=== PATIENT | female | born 1950 | race Caucasian/White ===

== ENCOUNTER 2018-07-17 18:16 | Emergency (ER) | payer BC, OTHER ==
[2018-07-17 18:41] VITALS: BP 150/80; PULSE 80; TEMP 98.1; BMI 35.2
--- NOTE | 2018-07-17 19:17 | PDOC ---
History of Present Illness - History of Present Illness Initial Comments: This is a 67 year old female, with no significant past medical history, who presents to the emergency department today complaining of palpitations since earlier today. Patient notes she began feeling palpitations a few hours ago while grocery shopping, which she notes lasted an hour. 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 She also reports having intermittent L shoulder pain for 2 weeks, which is exacerbated while lying on her left side. She notes that the shoulder pain is unaffected by palpitations, but the onset of her palpitations combined with her shoulder pain is what prompted her visit to the ED. The patient denies shortness of breath, headache and dizziness. Denies fever, chills, nausea, vomit, diarrhea and constipation. Denies dysuria, frequency, urgency and hematuria. PAST MEDICAL HISTORY: no significant history PAST SURGICAL HISTORY: no significant history FAMILY HISTORY: no pertinent history SOCIAL HISTORY: Pt lives with family and is employed. MEDICATIONS: reviewed ALLERGIES: As per nursing notes ROS General: No fevers or chills, no weakness, no weight loss HEENT: No change in vision. No sore throat. No ear pain CardioVascular: +Palpitations. No chest pain or shortness of breath Respiratory: No cough, or wheezing. Gastrointestinal: no nausea, vomiting, diarrhea or constipation, No rectal bleeding Genitourinary: No dysuria, hematuria, or frequency Musculoskeletal: +Intermittent left shoulder pain. No joint or muscle swelling. Neurologic: No headache, vertigo, dizziness or loss of consciousness Psychiatric: nor depression Skin: No rashes or easy bruising Endocrine: no increased thirst or abnormal weight change Allergic: no skin or latex allergy All other systems reviewed and normal Exam: General: Well-nourished well-developed individual, no acute distress HEENT: Throat: Normal, tonsils normal, no erythema or exudate Neck: Supple, no meningeal signs, no lymphadenopathy Eyes::Pupils equal reactive and round, extraocular motion intact Chest: Nontender to palpation Cardiac: S1-S2 normal, regular rate and rhythm, no murmurs rubs or gallops Respiratory: Lungs clear to auscultation bilateral Abdomen: Soft, nondistended, normal bowel sounds, nontender to palpation diffusely Extremities: Warm, dry, no cyanosis, clubbing, or edema Skin: No rashes Neuro: Alert and oriented x3, nonfocal exam, grossly intact, normal gait Psych: Normal mood and affect. <Roselyn Beltran - Last Filed: 07/17/18 20:04> - General History Source: Patient Exam Limitations: No Limitations - History of Present Illness Initial Comments: 07/17/18 20:09 A portion of this note was documented by scribe services under my direction. I have reviewed the details of the note, within reason, and agree with the documentation with the following case summary and management plan written by me. Patient treated in the ED. Nursing notes are reviewed and incorporated into the medical decision-making. Vital signs reviewed. Assessment plan: This is 67-year-old female with no significant past medical history and no significant risk factors for coronary artery disease. Patient came in complaining of some palpitations and had some intermittent left shoulder pain that was worse with movement. An EKG was done that showed normal sinus rhythm some nonspecific T-wave abnormalities, otherwise normal Cardiac enzymes were sent However patient did not want to wait for the results of her cardiac enzymes so she was discharged and I will call her with the results of her cardiac enzymes patient understands that if they are normal she will have to come back in 07/17/18 20:09 <Chase Bautista I - Last Filed: 07/17/18 20:10> - General Chief Complaint: Psychiatric Stated Complaint: ANXIETY Time Seen by Provider: 07/17/18 19:14 Past History <Roselyn Beltran - Last Filed: 07/17/18 20:04> - Past Medical History COPD: No - Surgical History Cholecystectomy: Yes - Suicide/Smoking/Psychosocial Hx Smoking Status: Yes Smoking History: Current some day smoker Have you smoked in the past 12 months: Yes Number of Cigarettes Smoked Daily: 2 Information on smoking cessation initiated: Yes Hx Alcohol Use: No <Chase Bautista I - Last Filed: 07/17/18 20:10> - Past Medical History Allergies/Adverse Reactions: Allergies Allergy/AdvReac Type Severity Reaction Status Date / Time No Known Allergies Allergy Verified 07/17/18 18:25 Home Medications: Ambulatory Orders NK [No Known Home Medication] 07/17/18 *Physical Exam - Vital Signs Last Vital Signs Temp Pulse Resp BP Pulse Ox 98.1 F 80 18 150/80 100 07/17/18 18:16 07/17/18 18:16 07/17/18 18:16 07/17/18 18:16 07/17/18 18:16 <Roselyn Beltran - Last Filed: 07/17/18 20:04> - Vital Signs Last Vital Signs Temp Pulse Resp BP Pulse Ox 98.1 F 80 18 150/80 100 07/17/18 18:16 07/17/18 18:16 07/17/18 18:16 07/17/18 18:16 07/17/18 18:16 <Chase Bautista I - Last Filed: 07/17/18 20:10> Moderate Sedation - Procedure Monitoring Vital Signs: Procedure Monitoring Vital Signs Temperature 98.1 F 07/17/18 18:16 Pulse Rate 80 07/17/18 18:16 Respiratory Rate 18 07/17/18 18:16 Blood Pressure 150/80 07/17/18 18:16 O2 Sat by Pulse Oximetry (%) 100 07/17/18 18:16 <Roselyn Beltran - Last Filed: 07/17/18 20:04> - Procedure Monitoring Vital Signs: Procedure Monitoring Vital Signs Temperature 98.1 F 07/17/18 18:16 Pulse Rate 80 07/17/18 18:16 Respiratory Rate 18 07/17/18 18:16 Blood Pressure 150/80 07/17/18 18:16 O2 Sat by Pulse Oximetry (%) 100 07/17/18 18:16 <Chase Bautista I - Last Filed: 07/17/18 20:10> *DC/Admit/Observation/Transfer - Attestations Scribe Attestion: 07/17/18 20:05 Documentation prepared by STALIN Gabriel, acting as medical records coordinator for Chase Bautista MD <Roselyn Beltran - Last Filed: 07/17/18 20:04> - Discharge Dispostion Decision to Admit order: No <Chase Bautista I - Last Filed: 07/17/18 20:10> Diagnosis at time of Disposition: Heart palpitations - Discharge Dispostion Disposition: HOME Condition at time of disposition: Stable - Patient Instructions Additional Instructions: You're being discharged however your one test that we did was not done at the time your discharge. We will call you if it is abnormal and he will need to come back. Return to the emergency department immediately with ANY new, persistent or worsening symptoms. Continue any medications as previously prescribed by your physician. You should follow up with your primary doctor as soon as possible regarding today's emergency department visit. . Please make sure your doctor reviews the results of your emergency evaluation. Thank you for coming to the Emergency Department today for your care. It was a pleasure to see you today. Please note that your evaluation is INCOMPLETE until you follow-up with your doctor.
--- NOTE | 2018-07-18 13:02 | EKG ---
Test Reason : Blood Pressure : / mmHG Vent. Rate : 088 BPM Atrial Rate : 088 BPM P-R Int : 168 ms QRS Dur : 088 ms QT Int : 378 ms P-R-T Axes : 067 -13 006 degrees QTc Int : 457 ms POOR DATA QUALITY, INTERPRETATION MAY BE ADVERSELY AFFECTED NORMAL SINUS RHYTHM NONSPECIFIC T WAVE ABNORMALITY ABNORMAL ECG WHEN COMPARED WITH ECG OF 16-JUN-2013 13:44, VENT. RATE HAS INCREASED BY 34 BPM Confirmed by Christo Silvestre ([id number]) on 07/18/2018 1:02:45 PM Referred By: OVIDIO Confirmed By:Christo Silvestre
== END 2018-07-17 20:24 | disposition home or self-care (01) ==
LOC: FER 18:16
DX: R00.2 Palpitations (principal); F17.210 Nicotine dependence, cigarettes, uncomplicated
CPT/HCPCS: 36415; 82550; 84484; 93005; 99282-25

== ENCOUNTER 2019-08-04 18:01 | Emergency (ER) | payer BC ==
[2019-08-04] MEDS ORDERED: SODIUM CHLORIDE 0.9% 1000 ML INFUS.BAG IV ONE (18:23)
--- NOTE | 2019-08-04 18:26 | PDOC ---
Documentation entered by Reshma Perry SCRIBE, acting as scribe for Brooke Aiken DO. Brooke Aiken DO: This documentation has been prepared by the sven, Reshma Perry SCRIBE, under my direction and personally reviewed by me in its entirety. I confirm that the documentation accurately reflects all work, treatment, procedures, and medical decision making performed by me. History of Present Illness - General Chief Complaint: Pain Stated Complaint: abdominal painnhematuria Time Seen by Provider: 08/04/19 18:06 - History of Present Illness Initial Comments: 08/04/19 18:36 This is a 68 year old female with no significant past medical history, who presents to the emergency department today complaining of LLQ pain. Patient was referred in by [facility] where they found blood in her urine. Patient states the pain began yesterday night after eating brussel sprouts with maldonado and felt gassy, she also states developing a fever of 101.1 and chills. She states taking motrin with no alleviation of pain. She denies taking any medication for the pain today. She denies recent nausea, vomiting, diarrhea or constipation. She denies recent dysuria, frequency, or urgency She denies recent chest pain or shortness of breath. Past History - Past Medical History Allergies/Adverse Reactions: Allergies Allergy/AdvReac Type Severity Reaction Status Date / Time No Known Allergies Allergy Verified 08/04/19 18:04 Home Medications: Ambulatory Orders NK [No Known Home Medication] 07/17/18 COPD: No - Surgical History Cholecystectomy: Yes - Psycho Social/Smoking Cessation Hx Smoking Status: Yes Smoking History: Current some day smoker Have you smoked in the past 12 months: Yes Number of Cigarettes Smoked Daily: 2 Hx Alcohol Use: No Review of Systems - Review of Systems Able to Perform ROS?: Yes Comments:: 08/04/19 18:36 GENERAL/CONSTITUTIONAL: + fever. +chills. No weakness. HEAD, EYES, EARS, NOSE AND THROAT: No change in vision. No ear pain or discharge. No sore throat. GASTROINTESTINAL: No nausea, vomiting, diarrhea or constipation. GENITOURINARY: No dysuria, frequency, or change in urination. CARDIOVASCULAR: No chest pain or shortness of breath. RESPIRATORY: No cough, wheezing, or hemoptysis. MUSCULOSKELETAL:+LLQ pain. No joint or muscle swelling or pain. No neck or back pain. SKIN: No rash NEUROLOGIC: No headache, vertigo, loss of consciousness, or change in strength/ sensation. ENDOCRINE: No increased thirst. No abnormal weight change. HEMATOLOGIC/LYMPHATIC: No anemia, easy bleeding, or history of blood clots. ALLERGIC/IMMUNOLOGIC: No hives or skin allergy. *Physical Exam - Vital Signs Last Vital Signs Temp Pulse Resp BP Pulse Ox 98.8 F 88 18 147/83 99 08/04/19 18:03 08/04/19 18:03 08/04/19 18:03 08/04/19 18:03 08/04/19 18:03 - Physical Exam General Appearance: Yes: Nourished, Appropriately Dressed. No: Apparent Distress HEENT: positive: EOMI, Normal Voice Neck: positive: Supple Respiratory/Chest: positive: Lungs Clear, Normal Breath Sounds. negative: Respiratory Distress Cardiovascular: positive: Regular Rhythm, Regular Rate, S1, S2. negative: Edema Gastrointestinal/Abdominal: positive: Soft, Tenderness (LLQ/L pelvis). negative : Guarding, Rebound Musculoskeletal: positive: Normal Inspection. negative: CVA Tenderness Extremity: positive: Normal Capillary Refill, Normal Inspection, Normal Range of Motion, Other (ambulatory with a steady gait) Integumentary: positive: Normal Color, Dry, Warm. negative: Rash Neurologic: positive: Fully Oriented, Alert, Normal Mood/Affect ED Treatment Course - LABORATORY CBC & Chemistry Diagram: 08/04/19 18:35 08/04/19 18:35 - RADIOLOGY Radiology Studies Ordered: Category Date Time Status ABDOMEN & PELVIS CT W/O CONTR [CT] Stat CT Scan 08/04/19 18:22 Ordered Medical Decision Making - Medical Decision Making 08/04/19 18:24 a/p: 68 yo female with L flank and LLQ pain since yesterday -chills last night -tmax 100.4 -last motrin was last night -pain after eating brussel sprouts -hematuria on ua dip from urgent care and sent for further eval of L flank pain/ hematuria -no n/v/d -last bm was today -no fevers today -L pelvis ttp, will send labs, ua, ucx -suspect renal colic -hx of requiring lithotrypsy in the past and has followed with Dr. Christiansen -pt declines pain meds at this time and is nontoxic in appearance 08/04/19 18:50 blood in urine, no uti 08/04/19 18:51 pt will be signed out to the [facility] ED doc pending labs and ct imaging pt currently stable Discharge - Discharge Information Problems reviewed: Yes Clinical Impression/Diagnosis: Left flank pain, Hematuria Condition: Stable - Follow up/Referral Referrals: Tawny Seth MD [Primary Care Provider] - Roly Dunaway MD [Staff Physician] - Saulo Dunaway [Non Staff, Medical] - - Patient Discharge Instructions - Post Discharge Activity
[2019-08-04 18:33] VITALS: BP 147/83; PULSE 88; TEMP 98.8; BMI 36.5
[2019-08-04 18:49] LABS: EOS % 0.9 % (0-4.5); HEMATOCRIT 43.1 % (32.4-45.2); HEMOGLOBIN 14.5 GM/dl (10.7-15.3); LYMPH % 36.4 % (8-40); MCH 31.3 pg (25.7-33.7); MCHC 33.7 g/dl (32.0-36.0); MEAN CELL VOLUME 92.8 fl (80-96); MEAN PLT VOLUME 7.6 fl (7.5-11.1); MONO % 4.6 % (3.8-10.2); NEUT % 57.1 % (42.8-82.8); PLATELET COUNT 332 K/MM3 (134-434); RBC 4.65 M/mm3 (3.60-5.2); RDW 11.8 % (11.6-15.6); WHITE BLOOD COUNT 10.8 K/mm3 (4.0-10.8)
[2019-08-04 18:59] LABS: CALCIUM 8.9 mg/dl (8.5-10); CREATININE 0.5 mg/dl (0.55-1.3); POTASSIUM 3.9 mmol/L (3.5-5.1)
--- NOTE | 2019-08-04 19:25 | PDOC ---
*Physical Exam - Vital Signs Last Vital Signs Temp Pulse Resp BP Pulse Ox 98.8 F 88 18 147/83 99 08/04/19 18:03 08/04/19 18:03 08/04/19 18:03 08/04/19 18:03 08/04/19 18:03 ED Treatment Course - LABORATORY CBC & Chemistry Diagram: 08/04/19 18:35 08/04/19 18:35 - ADDITIONAL ORDERS Additional order review: Laboratory Results 08/04/19 08/04/19 18:35 18:30 Sodium 139 Potassium 3.9 Chloride 103 Carbon Dioxide 26 Anion Gap 10 BUN 7.0 Creatinine 0.5 L Est GFR (CKD-EPI)AfAm 113.65 Est GFR (CKD-EPI)NonAf 98.06 Random Glucose 118 H Calcium 8.9 Total Bilirubin 1.0 AST 17 ALT 14 Alkaline Phosphatase 75 Total Protein 7.0 Albumin 4.0 Urine Color Yellow Urine Appearance Clear Urine pH 5.0 Urine Protein Negative Urine Glucose (UA) Negative Urine Ketones Negative Urine Blood 2+ H Urine Nitrite Negative Urine Bilirubin Negative Urine Urobilinogen 0.2 Ur Leukocyte Esterase Negative Urine RBC 10-20 Urine WBC 2-5 08/04/19 18:35 RBC 4.65 MCV 92.8 MCHC 33.7 RDW 11.8 MPV 7.6 Neutrophils % 57.1 Lymphocytes % 36.4 Monocytes % 4.6 Eosinophils % 0.9 Basophils % 1.0 - Medications Given in the ED: ED Medications Discontinued Medications Generic Name Dose Route Start Last Admin Trade Name Freq PRN Reason Stop Dose Admin Sodium Chloride 1,000 ml 08/04/19 18:23 08/04/19 18:41 Normal Saline - IV 08/04/19 18:24 1,000 ml ONCE ONE Administration ED Progress Note - Progress Note Progress Note: 08/04/19 19:24 This patient was transferred to [place] from Dr. Aiken at 1900 hrs. 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 Patient has had intermittent left flank pain times a few days. Patient went to the urgent care center today and her urine was positive for blood so she was sent here for further evaluation and to rule out renal colic. 08/04/19 19:25 Patient does have 2+ blood in the urine otherwise there is no evidence of infection. Patient has a CAT scan pending Patient's pain has nearly resolved at this point so it is possible that the stone has passed into the bladder as her pain was down low in her left pelvis area. 08/04/19 21:12 CAT scan shows diverticulitis. Patient given ceftriaxone and Flagyl IV in the ED and sent home on Bactrim and Flagyl. Patient given diverticulitis diet instructions and will follow-up with her primary care doctor Discharge - Discharge Information Problems reviewed: Yes Clinical Impression/Diagnosis: Hematuria, Diverticulitis Condition: Stable Disposition: HOME - Admission No - Additional Discharge Information Prescriptions: metroNIDAZOLE [Flagyl -] 500 mg PO TID #30 tablet Sulfamethoxazole/Trimethoprim [Bactrim DS -] 1 tab PO BID #20 tablet - Follow up/Referral Referrals: Saulo Dunaway [Non Staff, Medical] - Roly Dunaway MD [Staff Physician] - Tawny Seth MD [Primary Care Provider] - - Patient Discharge Instructions Additional Instructions: Take Bactrim 1 tablet 2 times a day for the next 10 days. Take Flagyl 1 tablet three times a day for the next 10 days. Tylenol or Motrin as needed for pain or fevers A diverticulitis diet is recommend as part of a short-term treatment plan for acute diverticulitis. Diverticula are small, bulging pouches that can form in the lining of the digestive system. They're found most often in the lower part of the large intestine (colon). This condition is called diverticulosis. In some cases, one or more of the pouches become inflamed or infected. This is known as diverticulitis. Mild cases of diverticulitis are usually treated with antibiotics and a diverticulitis diet, which includes clear liquids and low-fiber foods. More- severe cases typically require hospitalization. A diverticulitis diet is a temporary measure to give your digestive system a chance to rest. Oral intake is usually reduced until bleeding and diarrhea subside. A diverticulitis diet starts with only clear liquids for a few days. Examples of items allowed on a clear liquid diet include: Broth Fruit juices without pulp, such as apple juice Ice chips Ice pops without bits of fruit or fruit pulp Gelatin Water Tea or coffee without cream As you start feeling better, your doctor will recommend that you slowly add low- fiber foods. Examples of low-fiber foods include: Canned or cooked fruits without skin or seeds Canned or cooked vegetables such as green beans, carrots and potatoes (without the skin) Eggs, fish and poultry Refined white bread Fruit and vegetable juice with no pulp Low-fiber cereals Milk, yogurt and cheese eat yogurt at least once a day as it will help replenish the healthy bacteria in your intestines that the antibiotics kill. White rice, pasta and noodles You should feel better within two or three days of starting the diet and antibiotics. If you haven't started feeling better by then, call your doctor. Also contact your doctor if: You develop a fever Your abdominal pain is worsening You're unable to keep clear liquids down These may indicate a complication that requires hospitalization. The diverticulitis diet has few risks. However, continuing a clear liquid diet for more than a few days can lead to weakness and other complications, since it doesn't provide enough of the nutrients your body needs. For this reason, I recommend you to transition to the low fiberl diet as soon as you can tolerate it and then back to a normal diet once you finish the antibiotics. Return to the emergency department immediately with ANY new, persistent or worsening symptoms. Continue any medications as previously prescribed by your physician. You should follow up with your primary doctor as soon as possible regarding today's emergency department visit. . Please make sure your doctor reviews the results of your emergency evaluation. Thank you for coming to the Emergency Department today for your care. It was a pleasure to see you today. Please note that your evaluation is INCOMPLETE until you follow-up with your doctor. - Post Discharge Activity
[2019-08-04] MEDS ORDERED: CEFTRIAXONE 2,000 MG in DEXTROSE 5%-WATER - 50 ML IVPB ONE (21:07)
== END 2019-08-04 22:13 | disposition home or self-care (01) ==
LOC: FER 18:01
PROC: 3E03329 Introduction of Other Anti-infective into Peripheral Vein, Percutaneous Approach (ICD-10-PCS; principal; 2019-08-04)
PROC: 3E0337Z Introduction of Electrolytic and Water Balance Substance into Peripheral Vein, Percutaneous Approach (ICD-10-PCS; 2019-08-04)
DX: R31.9 Hematuria, unspecified (principal); R10.32 Left lower quadrant pain
CPT/HCPCS: 36415; 74176-TC; 80053; 81003; 81015; 85025; 87086; 99284-25; J7030

== ENCOUNTER 2020-12-01 17:35 | Emergency (ER) | payer BC ==
[2020-12-01 17:48] VITALS: BP 158/92; PULSE 96; TEMP 97.8; BMI 36.0
[2020-12-01 19:06] LABS: BASO % 0.4 % (0-2.0); EOS % 1.1 % (0-4.5); HEMATOCRIT 43.1 % (32.4-45.2); HEMOGLOBIN 14.6 GM/dL (10.7-15.3); LYMPH % 29.4 % (8-40); MCH 31.5 pg (25.7-33.7); MCHC 33.8 g/dl (32.0-36.0); MEAN CELL VOLUME 93.2 fl (80-96); MEAN PLT VOLUME 7.6 fl (7.5-11.1); MONO % 5.5 % (3.8-10.2); NEUT % 63.6 % (42.8-82.8); PLATELET COUNT 305 K/MM3 (134-434); RBC 4.62 M/mm3 (3.60-5.2); RDW 12.7 % (11.6-15.6); WHITE BLOOD COUNT 13.2 K/mm3 (4.0-10.0)
[2020-12-01 19:14] LABS: INR 1.04 (0.83-1.09); PROTHROMBIN TIME (PATIENT) 12.8 SEC (9.7-13.0)
[2020-12-01 19:16] LABS: ACTIVATED PTT 34.3 SECONDS (25.2-36.5)
[2020-12-01 19:17] LABS: CHLORIDE 102 mmol/L (98-107); SODIUM 138 mmol/L (136-145)
[2020-12-01 19:18] LABS: ALBUMIN 3.8 g/dl (3.4-5.0)
[2020-12-01 19:19] LABS: ANION GAP 8 MMOL/L (8-16); BLOOD UREA NITROGEN 12.2 mg/dL (7-18); CALCIUM 9.3 mg/dL (8.5-10.1); CO2 29 mmol/L (21-32); GLUCOSE,RANDOM 153 mg/dL (74-106)
[2020-12-01 19:22] LABS: SGOT/AST 24 U/L (15-37); SGPT/ALT 21 U/L (13-61)
[2020-12-01 19:23] LABS: CREATININE 0.6 mg/dL (0.55-1.3)
[2020-12-01 19:24] LABS: BILIRUBIN,TOTAL 0.7 mg/dL (0.2-1)
[2020-12-01 19:25] LABS: ALK PHOS 73 U/L (45-117)
== END 2020-12-01 20:31 | disposition home or self-care (01) ==
LOC: JER 17:35
DX: M25.512 Pain in left shoulder (principal)
CPT/HCPCS: 36415; 71046-TC-FY; 80053; 82550; 84484; 85025; 85610; 85730; 93005; 93010; 99285-25